=== PATIENT | male | born 1970 | race Caucasian/White ===

== ENCOUNTER 2016-12-15 19:16 | Emergency (ER) | payer BC | END 2016-12-15 21:11 | disposition home or self-care (01) | LOC: ER 19:16 | DX: S39.012A Strain of muscle, fascia and tendon of lower back, initial encounter (principal); M51.37 Other intervertebral disc degeneration, lumbosacral region; X58.XXXA Exposure to other specified factors, initial encounter | CPT/HCPCS: 72100; 96372; 99283; A9270-GY; J1170; J2550 ==

== ENCOUNTER 2016-12-17 16:40 | Emergency (ER) | payer BC | END 2016-12-17 17:37 | disposition home or self-care (01) | LOC: ER 16:40 | DX: M54.5 Low back pain (principal) | CPT/HCPCS: 99283 ==